=== PATIENT | male | born 1955 | race Caucasian/White ===

== ENCOUNTER 2017-02-06 10:47 | Emergency (ER) | payer MEDICARE, MEDICAID ==
[2017-02-06 11:05] VITALS: BP 139/83
--- NOTE | 2017-02-10 03:22 | ER ---
Date of Service: 02/06/2017 SUBJECTIVE: Buster presents to the emergency room with difficulty walking and bearing weight on his right foot. Staff states that he had a fall yesterday at his snf. He is a resident at [facility]. The patient does have a significant cognitive impairment. Staff states that he first was walking without difficulty, but later in the day began favoring his right foot. The patient is brought in secondary to this and did not suffer any other injury during the fall according to staff. Again, the patient does suffer from significant cognitive impairment and so subsequently the patient was unable to verbalize much in the way of chief complaint. PAST MEDICAL HISTORY: 1. Cognitive impairment. 2. Type 2 diabetes mellitus. 3. Seizure disorder. 4. Dyslipidemia. 5. Hypertension. MEDICATIONS: 1. Metformin. 2. Carbamazepine. 3. Simvastatin. 4. Multivitamin. 5. Hydrochlorothiazide. 6. Docusate. 7. Depakote. 8. Aspirin. ALLERGIES: Phenobarbital and pseudoephedrine. REVIEW OF SYSTEMS: Unobtainable. PHYSICAL EXAMINATION: General: This is a 61-year-old male patient, who is in no acute distress. Vital Signs: Blood pressure is 139/83, pulse rate 75, temperature is 36.3, respiratory rate 16, O2 saturations 97%. Skin: Warm, pink, and dry. Musculoskeletal: The patient does have some minimal swelling to his right ankle. No crepitus or deformity noted. No other traumatic findings noted. His drawer test is negative. Unable to elicit any discomfort with flexion and extension of the ankle joint or with varus or valgus stress. RADIOGRAPHIC DATA: Right foot and ankle series were obtained. There is no evidence of any acute fracture or dislocation. ASSESSMENT: Right ankle sprain. PLAN: The patient will be discharged. Navneet wrap was applied. I would like him to follow up in the clinic in the next 5 to 7 days if he is continuing to have difficulties with weightbearing. All questions were answered. MWK: 02/09/2017 23:53:21 MODL: 02/10/2017 03:15:03 /[id number]
== END 2017-02-06 13:02 ==
LOC: VM.ED 10:47
DX: S93.401A Sprain of unspecified ligament of right ankle, initial encounter (principal); E11.9 Type 2 diabetes mellitus without complications; I10 Essential (primary) hypertension; G31.84 Mild cognitive impairment of uncertain or unknown etiology; E78.5 Hyperlipidemia, unspecified; W19.XXXA Unspecified fall, initial encounter; Y92.009 Unspecified place in unspecified non-institutional (private) residence as the place of occurrence of the external cause
CPT/HCPCS: 73610-RT; 73630-RT; 99282-GF; 99283

== ENCOUNTER 2017-02-12 19:13 | Emergency (ER) | payer MEDICARE, MEDICAID ==
[2017-02-12 19:39] VITALS: BP 140/82
--- NOTE | 2017-02-12 19:54 | EDM.PDOC ---
ED HPI GENERAL MEDICAL PROBLEM - General Chief Complaint: Lower Extremity Injury/Pain Stated Complaint: old sprain, right leg/foot swelling Time Seen by Provider: 02/12/17 19:39 Source of Information: Reports: Patient History Limitations: Reports: No Limitations - History of Present Illness INITIAL COMMENTS - FREE TEXT/NARRATIVE: Patient brought in by staffing from the [facility] with complaints of increased swelling of the right lower leg over the last day. He was seen by Buster Chadwick on Monday February 06, 2017 and diagnosed with a sprained ankle. He had been improving before today. The leg is swollen, red, some pain, warm to touch. He is unable to verbalize any complaints. Onset: Today Location: Reports: Lower Extremity, Right - Related Data Allergies Allergy/AdvReac Type Severity Reaction Status Date / Time phenobarbital Allergy Cannot Verified 02/12/17 19:39 Remember pseudoephedrine Allergy Cannot Verified 02/12/17 19:39 Remember Home Meds: Home Meds Aspirin [Low Dose Aspirin EC] 81 mg PO DAILY 02/18/14 [History] Divalproex Sodium [Divalproex Sodium ER] 2 tab PO TID 02/18/14 [History] Docusate Sodium [Dok] 2 cap PO BEDTIME 02/18/14 [History] Hydrochlorothiazide 25 mg PO DAILY 02/18/14 [History] Multivits-Min/FA/Lycopene/Lut [[facility]] 1 each PO DAILY 02/18/14 [History] Simvastatin [Zocor] 40 mg PO BEDTIME 02/18/14 [History] carBAMazepine [Carbamazepine] 2 tab PO BEDTIME 02/18/14 [History] carBAMazepine [Carbamazepine] 200 mg PO DAILY 02/18/14 [History] metFORMIN [metFORMIN XR] 1,000 mg PO BIDM 02/18/14 [History] Past Medical History Other HEENT History: encephalitis Cardiovascular History: Reports: High Cholesterol, Hypertension Other Neuro History: encephalitis Other Psychiatric History: severe mental retardation Social & Family History - Tobacco Use Smoking Status *Q: Never Smoker Second Hand Smoke Exposure: No - Alcohol Use Days Per Week of Alcohol Use: 0 - Recreational Drug Use Recreational Drug Use: No - Living Situation & Occupation Living situation: Reports: Other Review of Systems - Review of Systems Review Of Systems: Unable To Obtain ED EXAM, GENERAL - Physical Exam Exam: See Below Exam Limited By: Other (history obtained by staff) General Appearance: Alert, WD/WN, No Apparent Distress Respiratory/Chest: No Respiratory Distress, Lungs Clear, Normal Breath Sounds, No Accessory Muscle Use, Chest Non-Tender Cardiovascular: Normal Peripheral Pulses, Regular Rate, Rhythm, No Edema, No Murmur GI/Abdominal: Normal Bowel Sounds, Soft, Non-Tender Extremities: Pedal Edema (right greater than left 2-3+ with pitting to right leg ) Neurological: Alert, Oriented, Other (traumatic brain injury) Skin Exam: Warm, Dry, Intact, Ecchymosis (right foot does have scattered ecchymosis around the toes), Erythema, Increased Warmth Lymphatic: No Adenopathy Course - Vital Signs Last Recorded V/S: Last Vital Signs Temp 36.1 C 02/12/17 19:15 Pulse 87 02/12/17 19:15 Resp 16 02/12/17 19:15 BP 140/82 02/12/17 19:15 Pulse Ox 96 02/12/17 19:15 - Orders/Labs/Meds Orders: Active Orders 24 hr Category Date Time Status Ankle 2V Rt [CR] Stat Exams 02/12/17 19:41 Ordered Foot 2V Rt [CR] Stat Exams 02/12/17 19:41 Ordered CBC WITH AUTO DIFF [HEME] Stat Lab 02/12/17 19:45 Ordered COMPREHENSIVE METABOLIC PN,CMP [CHEM] Stat Lab 02/12/17 19:45 Ordered CRP, [REF] Stat Lab 02/12/17 19:45 Ordered D-DIMER QUANTITATIVE [COAG] Stat Lab 02/12/17 19:45 Ordered - Re-Assessments/Exams Free Text/Narrative Re-Assessment/Exam: 02/12/17 21:00 review of x-ray images shows a non displaced distal fibula fracture. Will compress and place in walking boot. 02/12/17 21:00 Departure - Departure Time of Disposition: 21:09 Disposition: Home, Self-Care 01 Condition: Good Clinical Impression: Ankle sprain, Fracture of fibula, distal, right, closed - Discharge Information Instructions: Ankle Sprain, [id number] Forms: ED Department Discharge Additional Instructions: MRI on Wednesday, they will call with a time. I did leave contact information on the order sheet for them to utilize. Follow up with [facility] in 1-2 weeks for a follow up x-ray and further interventions if needed. You can either see if there is an auto radiator specialist coming to [place], or call the orthopedic clinic in [place] for an appointment. Their number is [phone]. You can tell them he has a non displaced distal fibula fracture on the right side. Continue to elevate, ice, use tylenol and ibuprofen. Labwork was otherwise non contributory. Negative D-Dimer which can indicate a blood clot to the leg. Again this was a negative test for that. Compress the ankle with chirag wrap or sleeve as tolerated. Please call us with any questions or concerns. - Problem List & Annotations (1) Fracture of fibula, distal, right, closed SNOMED Code(s): 973613044 Code(s): S82.831A - OTH FRACTURE OF UPPER AND LOWER END OF RIGHT FIBULA, INIT Status: Acute Priority: Low Current Visit: Yes Qualifiers: Encounter type: subsequent encounter Fracture morphology: unspecified fracture morphology Fracture healing: with routine healing Qualified Code(s) : S82.831D - Other fracture of upper and lower end of right fibula, subsequent encounter for closed fracture with routine healing - Problem List Review Problem List Initiated/Reviewed/Updated: Yes - My Orders Last 24 Hours: My Active Orders 02/12/17 19:41 Ankle 2V Rt [CR] Stat Foot 2V Rt [CR] Stat 02/12/17 19:45 CBC WITH AUTO DIFF [HEME] Stat COMPREHENSIVE METABOLIC PN,CMP [CHEM] Stat CRP, [REF] Stat D-DIMER QUANTITATIVE [COAG] Stat - Assessment/Plan Last 24 Hours: My Active Orders 02/12/17 19:41 Ankle 2V Rt [CR] Stat Foot 2V Rt [CR] Stat 02/12/17 19:45 CBC WITH AUTO DIFF [HEME] Stat COMPREHENSIVE METABOLIC PN,CMP [CHEM] Stat CRP, [REF] Stat D-DIMER QUANTITATIVE [COAG] Stat Assessment:: Right non displaced distal fibula fracture Plan: MRI on Wednesday, they will call with a time. I did leave contact information on the order sheet for them to utilize. Follow up with [facility] in 1-2 weeks for a follow up x-ray and further interventions if needed. You can either see if there is an auto radiator specialist coming to [place], or call the orthopedic clinic in [place] for an appointment. Their number is [phone]. You can tell them he has a non displaced distal fibula fracture on the right side. Continue to elevate, ice, use tylenol and ibuprofen. Labwork was otherwise non contributory. Negative D-Dimer which can indicate a blood clot to the leg. Again this was a negative test for that. Compress the ankle with chirag wrap or sleeve as tolerated. Please call us with any questions or concerns.
[2017-02-12 20:30] LABS: CHLORIDE,CL 99 mmol/L (98-107); SODIUM,NA 137 mmol/L (136-145)
== END 2017-02-12 21:23 | disposition home or self-care (01) ==
LOC: VM.ED 19:13
DX: S82.831A Other fracture of upper and lower end of right fibula, initial encounter for closed fracture (principal); E78.00 Pure hypercholesterolemia, unspecified; I10 Essential (primary) hypertension; F79 Unspecified intellectual disabilities; Z79.82 Long term (current) use of aspirin; Z79.899 Other long term (current) drug therapy; Z88.8 Allergy status to other drugs, medicaments and biological substances; W19.XXXA Unspecified fall, initial encounter
CPT/HCPCS: 36415; 73610-RT; 73630-RT; 80053; 85025; 85379; 86140; 99283; 99283-GF

== ENCOUNTER 2019-09-16 11:08 | Emergency (ER) | payer MEDICARE, MEDICAID ==
[2019-09-16 11:33] VITALS: BP 156/73; PULSE 86
--- NOTE | 2019-09-16 11:44 | EDM.PDOC ---
ED HPI GENERAL MEDICAL PROBLEM - General Chief Complaint: Laceration Stated Complaint: FALL Time Seen by Provider: 09/16/19 11:15 Source of Information: Reports: Patient, Other (Caregivers) History Limitations: Reports: No Limitations - History of Present Illness INITIAL COMMENTS - FREE TEXT/NARRATIVE: Per patient and caregiver states he fell last night into the corner of a heat return on the side of the wall with a laceration to the left side of his back states area was cleaned up last night with warm soapy water and covered with a Band-Aid but this morning the RN states she wanted it to be looked at by a provider There are no other complaints at this time patient had no head injury no loss of consciousness has had no change in behavior or activity Patient is a diabetic and takes metformin twice daily Duration: Day(s): Quality: Reports: Other (No pain is noted) - Related Data Allergies Allergy/AdvReac Type Severity Reaction Status Date / Time phenobarbital Allergy Cannot Verified 09/16/19 11:37 Remember pseudoephedrine Allergy Cannot Verified 09/16/19 11:37 Remember Home Meds: Home Meds Aspirin [Low Dose Aspirin EC] 81 mg PO DAILY 02/18/14 [History] Divalproex Sodium [Divalproex Sodium ER] 2 tab PO TID 02/18/14 [History] Docusate Sodium [Dok] 2 cap PO BEDTIME 02/18/14 [History] Multivits-Min/FA/Lycopene/Lut [[facility]] 1 each PO DAILY 02/18/14 [History] Simvastatin [Zocor] 40 mg PO BEDTIME 02/18/14 [History] carBAMazepine [Carbamazepine] 2 tab PO BEDTIME 02/18/14 [History] carBAMazepine [Carbamazepine] 200 mg PO DAILY 02/18/14 [History] hydroCHLOROthiazide [Hydrochlorothiazide] 25 mg PO DAILY 02/18/14 [History] metFORMIN [metFORMIN XR] 1,000 mg PO BIDM 02/18/14 [History] Past Medical History Other HEENT History: encephalitis Cardiovascular History: Reports: High Cholesterol, Hypertension Other Neuro History: encephalitis Other Psychiatric History: severe mental retardation Endocrine/Metabolic History: Reports: Diabetes, Type II Social & Family History - Living Situation & Occupation Living situation: Reports: Other ED ROS GENERAL - Review of Systems Review Of Systems: See Below Constitutional: Reports: No Symptoms HEENT: Reports: No Symptoms Respiratory: Reports: No Symptoms Cardiovascular: Reports: No Symptoms Endocrine: Reports: No Symptoms GI/Abdominal: Reports: No Symptoms : Reports: No Symptoms Musculoskeletal: Reports: No Symptoms Skin: Reports: Other (Just the laceration/puncture wound to the back) Neurological: Reports: No Symptoms, Other (There is been no change in behavior with the patient per caregivers) Psychiatric: Reports: No Symptoms Hematologic/Lymphatic: Reports: No Symptoms Immunologic: Reports: No Symptoms ED EXAM, SKIN/RASH Exam: See Below Exam Limited By: No Limitations General Appearance: Alert, WD/WN, No Apparent Distress, Other (Patient is alert and oriented follows commands answer some questions states he is not hurting cranial nerves II through XII are grossly intact) Eye Exam: Bilateral Eye: EOMI, PERRL Throat/Mouth: Normal Inspection, Normal Lips, Normal Gums, Normal Voice, No Airway Compromise Head: Atraumatic, Normocephalic Neck: Full Range of Motion Respiratory/Chest: No Respiratory Distress, No Accessory Muscle Use GI/Abdominal: Normal Bowel Sounds, Soft, Non-Tender Back Exam: Normal Inspection, Full Range of Motion Extremities: Normal Inspection, Normal Range of Motion, Non-Tender Neurological: Alert, Oriented, CN II-XII Intact, Normal Cognition, Normal Gait, No Motor/Sensory Deficits Psychiatric: Normal Affect, Normal Mood Skin: Warm, Dry, Normal Color, No Rash, Other (Exam to the left lateral paraspinal muscle area there is approximately a 1 cm laceration/puncture wound that is approximately 4 mm deep and has some mild clear sanguinous drainage per the caregiver states he did have a bath just before he got here there is no surrounding erythema calor or signs or symptoms of secondary infection the patient has no tenderness to palpation around the area of the spine). No: Intact Course - Vital Signs Text/Narrative:: Approximately 1 cm of layered iodoform gauze was placed in the puncture wound and covered with a Band-Aid Caregivers were given signs and symptoms of infection and need for follow-up with a verbal understanding they also states they will perform the repacking for the next 48 hours and have the RN follow-up Wednesday with the patient they understand signs symptoms and need to return to the emergency room Last Recorded V/S: Last Vital Signs Temp 36.1 C 09/16/19 11:12 Pulse 86 09/16/19 11:12 Resp 14 09/16/19 11:12 BP 156/73 H 09/16/19 11:12 Pulse Ox 96 09/16/19 11:12 Departure - Departure Time of Disposition: 11:40 Disposition: Home, Self-Care 01 Condition: Good Clinical Impression: Puncture wound - Discharge Information *PRESCRIPTION DRUG MONITORING PROGRAM REVIEWED*: No *COPY OF PRESCRIPTION DRUG MONITORING REPORT IN PATIENT VEENA: No Instructions: Laceration Care, Adult, [id number] Referrals: Wilian Lawler MD [Primary Care Provider] - Forms: ED Department Discharge Additional Instructions: Replace the packing gauze tomorrow at 11:00 if the area covered for the next 24 to 48 hours have the nurse follow-up with him Wednesday as directed Keep the area dry and clean after washed with warm soapy water apply small amount of Neosporin to the area daily until seen by the nurse Return to the emergency room if anything changes or gets worse Caregivers given signs and symptoms of infection and need for follow-up with a verbal understanding Sepsis Event Note - Evaluation Sepsis Screening Result: No Definite Risk - Focused Exam Vital Signs: Vital Signs Temp Pulse Resp BP Pulse Ox 09/16/19 11:12 36.1 C 86 14 156/73 H 96 Date Exam was Performed: 09/16/19 Time Exam was Performed: 11:38 - Problem List & Annotations (1) Puncture wound SNOMED Code(s): 222707569 Code(s): T14.8XXA - OTHER INJURY OF UNSPECIFIED BODY REGION, INITIAL ENCOUNTER Status: Acute Current Visit: Yes
== END 2019-09-16 11:44 | disposition home or self-care (01) ==
LOC: VM.ED 11:08
DX: S21.232A Puncture wound without foreign body of left back wall of thorax without penetration into thoracic cavity, initial encounter (principal); E78.00 Pure hypercholesterolemia, unspecified; I10 Essential (primary) hypertension; E11.9 Type 2 diabetes mellitus without complications; Z88.8 Allergy status to other drugs, medicaments and biological substances; Z79.82 Long term (current) use of aspirin; Z79.899 Other long term (current) drug therapy; Z79.84 Long term (current) use of oral hypoglycemic drugs; W19.XXXA Unspecified fall, initial encounter
CPT/HCPCS: 99282; 99283-GF

== ENCOUNTER 2020-07-12 23:13 | Emergency (ER) | payer MEDICARE, MEDICAID ==
--- NOTE | 2020-07-13 00:09 | EDM.PDOC ---
ED HPI GENERAL MEDICAL PROBLEM - General Chief Complaint: General Stated Complaint: Possible Covid / Dehydration Time Seen by Provider: 07/12/20 23:42 Source of Information: Reports: RN History Limitations: Reports: Other - History of Present Illness INITIAL COMMENTS - FREE TEXT/NARRATIVE: Pt. was brought to ER for evaluation for possible covid 19. Pt. is a resident at a [facility]. Staff states that his roommate is currently positive for covid 19. Staff states that patient is less active, and was noted to be running a fever. He was not given any tylenol or ibuprofen for the fever. Staff states that he appears more tired than normal, but is not experiencing any respiratory distress. It is unable to accurately provide a ROS. Pt. has not been experiencing any nausea, vomiting, decreased LOC, or other worrisome signs/symptoms. Onset: Today Onset Date: 07/13/20 Location: Reports: Generalized Associated Symptoms: Reports: Fever/Chills - Related Data Allergies Allergy/AdvReac Type Severity Reaction Status Date / Time phenobarbital Allergy Cannot Verified 09/16/19 11:37 Remember pseudoephedrine Allergy Cannot Verified 09/16/19 11:37 Remember Home Meds: Home Meds Aspirin [Low Dose Aspirin EC] 81 mg PO DAILY 02/18/14 [History] Divalproex Sodium [Divalproex Sodium ER] 2 tab PO TID 02/18/14 [History] Docusate Sodium [Dok] 2 cap PO BEDTIME 02/18/14 [History] Multivits-Min/FA/Lycopene/Lut [[facility]] 1 each PO DAILY 02/18/14 [History] Simvastatin [Zocor] 40 mg PO BEDTIME 02/18/14 [History] carBAMazepine [Carbamazepine] 2 tab PO BEDTIME 02/18/14 [History] carBAMazepine [Carbamazepine] 200 mg PO DAILY 02/18/14 [History] hydroCHLOROthiazide [Hydrochlorothiazide] 25 mg PO DAILY 02/18/14 [History] metFORMIN [metFORMIN XR] 1,000 mg PO BIDM 02/18/14 [History] Past Medical History Other HEENT History: encephalitis Cardiovascular History: Reports: High Cholesterol, Hypertension Other Neuro History: encephalitis Other Psychiatric History: severe mental retardation Endocrine/Metabolic History: Reports: Diabetes, Type II Social & Family History - Living Situation & Occupation Living situation: Reports: Other ED ROS GENERAL - Review of Systems Review Of Systems: Unable To Obtain Reason Not Obtained: developmental delay ED EXAM, GENERAL - Physical Exam Exam: See Below Exam Limited By: No Limitations General Appearance: Alert, No Apparent Distress Throat/Mouth: Normal Inspection, Normal Lips, Normal Teeth, Normal Oropharynx, Normal Voice, No Airway Compromise, Other (oral mucosa is moist.) Head: Atraumatic, Normocephalic Neck: Normal Inspection, Supple, Full Range of Motion Respiratory/Chest: No Respiratory Distress, Lungs Clear, Normal Breath Sounds, No Accessory Muscle Use Cardiovascular: Normal Peripheral Pulses, Regular Rate, Rhythm, No Edema, No Murmur GI/Abdominal: Soft, Non-Tender, No Distention, No Mass (Male) Exam: Deferred Rectal (Males) Exam: Deferred Extremities: Normal Inspection, Normal Range of Motion, Non-Tender, No Pedal Edema, Normal Capillary Refill Neurological: Alert, Oriented, CN II-XII Intact, Normal Reflexes, No Motor/Sensory Deficits Psychiatric: Normal Affect, Normal Mood Skin Exam: Warm, Dry, Intact, Normal Color Course - Orders/Labs/Meds Labs: Laboratory Tests 07/12/20 Range/Units 23:23 SARS CoV-2 RNA Rapid DIONTE Positive H (NEGATIVE) Departure - Departure Time of Disposition: 20:04 Disposition: DC/Tfer to [id number] Clinical Impression: COVID-19 - Discharge Information Instructions: COVID-19 Frequently Asked Questions, COVID-19 Forms: ED Department Discharge Additional Instructions: Quarantine patient as best as you can. Tylenol 100mg every 6 hours for fever. Ibuprofen 400mg every 4 hours for fever. I would give these on a schedule for the next several days. Encourage hydration. Return to ER if he has increased work of breathing, confusion, or other worrisome signs/symptoms. - Problem List Review Problem List Initiated/Reviewed/Updated: Yes - Assessment/Plan Plan: Quarantine patient as best as you can. Tylenol 100mg every 6 hours for fever. Ibuprofen 400mg every 4 hours for fever. I would give these on a schedule for the next several days. Encourage hydration. Return to ER if he has increased work of breathing, confusion, or other worrisome signs/symptoms.
[2020-07-13 00:52] VITALS: BP 172/86; PULSE 98
== END 2020-07-13 00:03 ==
LOC: SUPCPDRO 23:13 → VM.ED 23:13
DX: U07.1 COVID-19 (principal); I10 Essential (primary) hypertension; E78.00 Pure hypercholesterolemia, unspecified; E11.9 Type 2 diabetes mellitus without complications; Z79.82 Long term (current) use of aspirin; Z79.899 Other long term (current) drug therapy; Z79.84 Long term (current) use of oral hypoglycemic drugs; Z88.8 Allergy status to other drugs, medicaments and biological substances
CPT/HCPCS: 99284; U0002

== ENCOUNTER 2021-02-03 10:09 | Emergency (ER) | payer MEDICARE, MEDICAID ==
[2021-02-03] MEDS ORDERED: Sodium Chloride 0.9% 1,000 ML IV SCH (10:30)
--- NOTE | 2021-02-03 10:37 | EDM.PDOC ---
ED HPI GENERAL MEDICAL PROBLEM - General Stated Complaint: STROKE CODE Time Seen by Provider: 02/03/21 10:16 Source of Information: Reports: EMS, Alf Records, RN - History of Present Illness INITIAL COMMENTS - FREE TEXT/NARRATIVE: Buster is a 65 y/o male who lives at the [facility]. He has a history of a severe seizure disorder. Today at 0800 staff noticed that he was very weak and required 2 assists to help him get out of the chair. He usually is able to ambulate independently. He seemed to eat okay this AM for breakfast. He was also very unstable when needing the 2 person assist. He did get up to void 4-5 times last night which is unusual for him. He has followed commands of staff, but he is otherwise not good historian at his baseline. - Related Data Allergies Allergy/AdvReac Type Severity Reaction Status Date / Time phenobarbital Allergy Cannot Verified 02/03/21 11:29 Remember pseudoephedrine Allergy Cannot Verified 02/03/21 11:29 Remember Home Meds: Home Meds Aspirin [Low Dose Aspirin EC] 81 mg PO DAILY 02/18/14 [History] Simvastatin [Zocor] 40 mg PO BEDTIME 02/18/14 [History] carBAMazepine [Carbamazepine] 2 tab PO BEDTIME 02/18/14 [History] carBAMazepine [Carbamazepine] 200 mg PO DAILY 02/18/14 [History] hydroCHLOROthiazide [Hydrochlorothiazide] 25 mg PO DAILY 02/18/14 [History] metFORMIN [metFORMIN XR] 1,000 mg PO BIDM 02/18/14 [History] Docusate Sodium [Colace] 200 mg PO DAILY@18 02/03/21 [History] Multivit-Min/Iron/Folic Acid/K [Centravites Adults Tablet] 1 tab PO DAILY 02/03/21 [History] Valproic Acid 1,000 mg PO TID 02/03/21 [History] lisinopriL [Lisinopril] 20 mg PO BID 02/03/21 [History] Past Medical History Other HEENT History: encephalitis Cardiovascular History: Reports: High Cholesterol, Hypertension Other Neuro History: encephalitis Other Psychiatric History: severe mental retardation Endocrine/Metabolic History: Reports: Diabetes, Type II - Infectious Disease History Infectious Disease History: Reports: Novel Coronavirus Social & Family History - Living Situation & Occupation Living situation: Reports: Other Review of Systems - Review of Systems Review Of Systems: Unable To Obtain Reason Not Obtained: Patient has hx of Severe Mental Retardation/Encephalitis ED EXAM, GENERAL - Physical Exam Exam: See Below Exam Limited By: Other (Cognitive Status) General Appearance: Alert, WD/WN (Elderly male. He is alert and wearing a protection helmet.) Eye Exam: Bilateral Eye: PERRL Ears: Normal External Exam, Normal Canal, Other (TMs occluded with soft brown cerumen) Nose: Normal Inspection, Normal Mucosa Throat/Mouth: Normal Inspection, Normal Lips Head: Atraumatic, Normocephalic Neck: Normal Inspection, Supple, Non-Tender Respiratory/Chest: No Respiratory Distress, Lungs Clear, Chest Non-Tender Cardiovascular: Normal Peripheral Pulses, Regular Rate, Rhythm GI/Abdominal: Normal Bowel Sounds, Soft, Other (Note a well healed surgical scar.) Back Exam: Normal Inspection, Full Range of Motion Extremities: Normal Capillary Refill, Pedal Edema (Trace non-pitting john lower legs), Other (TEDs on bilaterally) Neurological: Alert, CN II-XII Intact, Other (Seems to be at baseline, NIH Score unable due to cognitive impairment) Psychiatric: Normal Affect Skin Exam: Warm, Dry, Intact #1 Interpretation EKG Date: 02/03/21 Time: 10:22 Rhythm: NSR Rate (Beats/Min): 88 Spencer: Normal P-Wave: Present QRS: Normal ST-T: Normal QT: Normal Comparison: NA - No Prior EKG EKG Interpretation Comments: Occasional PACs, Sinus Rhythm Course - Vital Signs Text/Narrative:: 1016 The patient was seen by the PLANT OPERATOR/SHIFT SUPERVISOR. He went immediately to CT from EMS cot. Labs, EKG, & imaging was ordered. 1110 Labs reviewed. Note Lactic Acid=3.6, asked for repeat test from lab. Zchzoq=161, Wpruzlh=258, Gap=9.0, high anion gap with normal gap acidosis. Ceftriaxone 1gm IVP given to elevated lactic acid, no obvious source of infection noted and patient afebrile. Blood Cx x [address] results reviewed. Note late acute to early chronic frontoparietal subdural hematoma measuring 6 mm with a mild rightward shift of 3mm. Andrea Sloan contacted and case presented for transfer. Awaiting return call from Neuro Surgeon location director after CT review. Note BP 165/83 and 181/85, decreased but still elevated. Will give Labetalol 10mg IVP to reach BP goal >140/90 due to hemorrhage. 1230 Neuro Surgeon, Dr Tilley called back and does not advise any acute surgical intervention after reviewing the CT. PLANT OPERATOR/SHIFT SUPERVISOR requests hospitalist to consult with further. 1245 Luther returned call and case now presented to Dr Jones who advises transfer for further diagnostic imaging, but awaiting call back from Dr Torre. 1255 Dr Torre, Neurology, returns call and case presented. He advises transfer to the ER for further evaluation. Dr Jones to be accepting in the ER. patient remained stabled until leaving with EMS. - Orders/Labs/Meds Orders: Active Orders 24 hr Category Date Time Status EKG Documentation Completion [RC] STAT Care 02/03/21 10:18 Ordered CULTURE BLOOD [BC] Stat Lab 02/03/21 11:13 Ordered CULTURE BLOOD [BC] Stat Lab 02/03/21 11:13 Ordered Sodium Chloride 0.9% [Normal Saline] 1,000 ml Med 02/03/21 10:30 Ordered IV ASDIRECTED Blood Culture x2 Reflex Set [OM.PC] Stat Oth 02/03/21 11:13 Ordered Medication Orders Sodium Chloride (Normal Saline) 1,000 mls @ 50 mls/hr IV ASDIRECTED TEA Labs: Laboratory Tests 02/03/21 02/03/21 02/03/21 Range/Units 10:21 10:26 10:26 WBC 8.1 (4.0-10.0) x10^3/uL RBC 4.89 (4.5-6.0) x10^6/uL Hgb 14.7 (14.0-18.0) g/dL Hct 42.8 (40.0-52.0) % MCV 87.5 D (78.0-93.0) fL MCH 30.1 (26.0-32.0) pg MCHC 34.3 (32.0-36.0) g/dL RDW Coeff of Mimi 15.0 (10.0-15.0) % Plt Count 137 (130-400) x10^3/uL Neut % (Auto) 59.5 (50.0-80.0) % Lymph % (Auto) 27.3 (25.0-50.0) % [place] % (Auto) 11.3 H (2.0-11.0) % Eos % (Auto) 1.4 (0.0-4.0) % Baso % (Auto) 0.5 (0.2-1.2) % PT 10.9 (9.9-12.5) SEC INR 1.0 L (2.0-3.5) APTT 27.1 (25.6-32.8) SEC Sodium (136-145) mmol/L Potassium (3.5-5.1) mmol/L Chloride (98-107) mmol/L Carbon Dioxide (21-32) mmol/L Anion Gap (5-15) mmol/L BUN (7-18) mg/dL Creatinine (0.70-1.30) mg/dL Est Cr Clr Drug Dosing Estimated GFR (MDRD) Glucose (70-99) mg/dL POC Glucose 131 H (70-99) mg/dL Lactic Acid (0.4-2.0) mmol/L Calcium (8.5-10.1) mg/dL Corrected Calcium (8.5-10.1) mg/dL Magnesium (1.8-2.4) mg/dL Total Bilirubin (0.2-1.0) mg/dL AST (15-37) U/L ALT (16-63) U/L Alkaline Phosphatase (46-116) U/L Troponin I High Sens (<=76) ng/L NT-Pro-B Natriuret Pep (<=125) pg/mL Total Protein (6.4-8.2) g/dL Albumin (3.4-5.0) g/dL Globulin Albumin/Globulin Ratio Urine Color (YELLOW) Urine Appearance (CLEAR) Urine pH (5.0-8.0) Ur Specific [place] Urine Protein (NEGATIVE) mg/dL Urine Glucose (UA) (NEGATIVE) mg/dL Urine Ketones (NEGATIVE) mg/dL Urine Occult Blood (NEGATIVE) Urine Nitrite (NEGATIVE) Urine Bilirubin (NEGATIVE) Urine Urobilinogen (0.2) EU/dL Ur Leukocyte Esterase (NEGATIVE) Urine RBC (NOT SEEN) /HPF Urine WBC (NOT SEEN) /HPF Urine Bacteria (NOT SEEN) /HPF Urine Mucus (NOT SEEN) /LPF 02/03/21 02/03/21 02/03/21 Range/Units 10:26 10:26 10:26 WBC (4.0-10.0) x10^3/uL RBC (4.5-6.0) x10^6/uL Hgb (14.0-18.0) g/dL Hct (40.0-52.0) % MCV (78.0-93.0) fL MCH (26.0-32.0) pg MCHC (32.0-36.0) g/dL RDW Coeff of Mimi (10.0-15.0) % Plt Count (130-400) x10^3/uL Neut % (Auto) (50.0-80.0) % Lymph % (Auto) (25.0-50.0) % [place] % (Auto) (2.0-11.0) % Eos % (Auto) (0.0-4.0) % Baso % (Auto) (0.2-1.2) % PT (9.9-12.5) SEC INR (2.0-3.5) APTT (25.6-32.8) SEC Sodium 130 L (136-145) mmol/L Potassium 4.6 (3.5-5.1) mmol/L Chloride 93 L (98-107) mmol/L Carbon Dioxide 28 (21-32) mmol/L Anion Gap 13.6 (5-15) mmol/L BUN 21 H (7-18) mg/dL Creatinine 0.9 (0.70-1.30) mg/dL Est Cr Clr Drug Dosing TNP Estimated GFR (MDRD) > 60 Glucose 125 H (70-99) mg/dL POC Glucose (70-99) mg/dL Lactic Acid 3.6 H* (0.4-2.0) mmol/L Calcium 8.9 (8.5-10.1) mg/dL Corrected Calcium 9.3 (8.5-10.1) mg/dL Magnesium 1.3 L (1.8-2.4) mg/dL Total Bilirubin 0.3 (0.2-1.0) mg/dL AST 12 L (15-37) U/L ALT 14 L (16-63) U/L Alkaline Phosphatase 47 (46-116) U/L Troponin I High Sens 10 (<=76) ng/L NT-Pro-B Natriuret Pep 706 H (<=125) pg/mL Total Protein 7.1 (6.4-8.2) g/dL Albumin 3.5 (3.4-5.0) g/dL Globulin 3.6 Albumin/Globulin Ratio 0.97 Urine Color (YELLOW) Urine Appearance (CLEAR) Urine pH (5.0-8.0) Ur Specific [place] Urine Protein (NEGATIVE) mg/dL Urine Glucose (UA) (NEGATIVE) mg/dL Urine Ketones (NEGATIVE) mg/dL Urine Occult Blood (NEGATIVE) Urine Nitrite (NEGATIVE) Urine Bilirubin (NEGATIVE) Urine Urobilinogen (0.2) EU/dL Ur Leukocyte Esterase (NEGATIVE) Urine RBC (NOT SEEN) /HPF Urine WBC (NOT SEEN) /HPF Urine Bacteria (NOT SEEN) /HPF Urine Mucus (NOT SEEN) /LPF 02/03/21 Range/Units 10:45 WBC (4.0-10.0) x10^3/uL RBC (4.5-6.0) x10^6/uL Hgb (14.0-18.0) g/dL Hct (40.0-52.0) % MCV (78.0-93.0) fL MCH (26.0-32.0) pg MCHC (32.0-36.0) g/dL RDW Coeff of Mimi (10.0-15.0) % Plt Count (130-400) x10^3/uL Neut % (Auto) (50.0-80.0) % Lymph % (Auto) (25.0-50.0) % [place] % (Auto) (2.0-11.0) % Eos % (Auto) (0.0-4.0) % Baso % (Auto) (0.2-1.2) % PT (9.9-12.5) SEC INR (2.0-3.5) APTT (25.6-32.8) SEC Sodium (136-145) mmol/L Potassium (3.5-5.1) mmol/L Chloride (98-107) mmol/L Carbon Dioxide (21-32) mmol/L Anion Gap (5-15) mmol/L BUN (7-18) mg/dL Creatinine (0.70-1.30) mg/dL Est Cr Clr Drug Dosing Estimated GFR (MDRD) Glucose (70-99) mg/dL POC Glucose (70-99) mg/dL Lactic Acid (0.4-2.0) mmol/L Calcium (8.5-10.1) mg/dL Corrected Calcium (8.5-10.1) mg/dL Magnesium (1.8-2.4) mg/dL Total Bilirubin (0.2-1.0) mg/dL AST (15-37) U/L ALT (16-63) U/L Alkaline Phosphatase (46-116) U/L Troponin I High Sens (<=76) ng/L NT-Pro-B Natriuret Pep (<=125) pg/mL Total Protein (6.4-8.2) g/dL Albumin (3.4-5.0) g/dL Globulin Albumin/Globulin Ratio Urine Color Yellow (YELLOW) Urine Appearance Clear (CLEAR) Urine pH 7.5 (5.0-8.0) Ur Specific [place] 1.025 Urine Protein Negative (NEGATIVE) mg/dL Urine Glucose (UA) Negative (NEGATIVE) mg/dL Urine Ketones 15 H (NEGATIVE) mg/dL Urine Occult Blood Trace-intact H (NEGATIVE) Urine Nitrite Negative (NEGATIVE) Urine Bilirubin Negative (NEGATIVE) Urine Urobilinogen 1.0 (0.2) EU/dL Ur Leukocyte Esterase Negative (NEGATIVE) Urine RBC 0-5 (NOT SEEN) /HPF Urine WBC 0-5 (NOT SEEN) /HPF Urine Bacteria Rare (NOT SEEN) /HPF Urine Mucus Not seen (NOT SEEN) /LPF Meds: Medications Generic Name Dose Route Start Last Admin Trade Name Freq PRN Reason Stop Dose Admin Sodium Chloride 1,000 mls @ 50 mls/hr 02/03/21 10:30 Normal Saline IV ASDIRECTED TEA Discontinued Medications Generic Name Dose Route Start Last Admin Trade Name Freq PRN Reason Stop Dose Admin Ceftriaxone Sodium 1 gm 02/03/21 11:12 Ceftriaxone 1 Gm Vial IVPUSH 02/03/21 11:13 STAT ONE Labetalol HCl 10 mg 02/03/21 11:33 Labetalol 20 Mg/4 Ml Syringe IVPUSH 02/03/21 11:34 NOW ONE Protocol Departure - Departure Time of Disposition: 12:59 Disposition: DC/Tfer to Acute Hospital 02 Preliminary Cause of *Q: Cardiac Arrest Condition: Good Clinical Impression: Midline shift of brain due to hematoma, Increased weakness when ambulating, Hx: encephalitis, Seizure disorder, Lactic acid blood increased, Subdural hematoma, Change in behavior - Discharge Information Referrals: Trudy Lagunas MD [Primary Care Provider] - Forms: Interfacility Transfer EMTALA Additional Instructions: -To [facility] ER to Dr Jones via [facility] - My Orders Last 24 Hours: My Active Orders 02/03/21 10:18 EKG Documentation Completion [RC] STAT 02/03/21 10:30 Sodium Chloride 0.9% [Normal Saline] 1,000 ml IV ASDIRECTED 02/03/21 11:13 CULTURE BLOOD [BC] Stat CULTURE BLOOD [BC] Stat Blood Culture x2 Reflex Set [OM.PC] Stat - Assessment/Plan Last 24 Hours: My Active Orders 02/03/21 10:18 EKG Documentation Completion [RC] STAT 02/03/21 10:30 Sodium Chloride 0.9% [Normal Saline] 1,000 ml IV ASDIRECTED 02/03/21 11:13 CULTURE BLOOD [BC] Stat CULTURE BLOOD [BC] Stat Blood Culture x2 Reflex Set [OM.PC] Stat Assessment:: 1)Change in Behavior 2)Subdural Hematoma with Midline Shift, Subacute vs Chronic 3)Increased Overall Weakness 4)Hx Encephalitis 5)Severely Retarded 6)Hyponatremia 7)Elevated Lactic Acid Plan: -Transfer to [facility] via EMS for further care at tertiary hague
[2021-02-03 10:50] LABS: PTT,PARTIAL THROMBOPLSTIN TIME 27.1 SEC (25.6-32.8)
--- NOTE | 2021-02-03 10:51 | CT ---
[id number] CT/CT Head Stroke Protocol EXAM: NONCONTRAST HEAD CT INDICATION: STROKE CODE, INCREASED UNSTEADINESS COMPARISON: None. DISCUSSION: Overlying the left frontoparietal convexity there is a 6 mm subdural collection that is slightly more dense than CSF compatible with a late subacute to chronic subdural hematoma. Along the parafalcine aspect of the right frontal lobe there is a 10 mm CSF density subdural collection along the falx that could represent a chronic subdural hematoma or hygroma. Mild to moderate generalized atrophy. Mild rightward midline shift of about 4 mm. No acute hemorrhage or territorial infarct is identified. Mild bilateral maxillary sinus mucosal thickening. IMPRESSION: 1. Late subacute to early chronic left frontoparietal convexity subdural hematoma measuring about 6 mm in thickness and contributing to mild rightward midline shift of about 3 mm. 2. Right parafalcine CSF density subdural collection, chronic subdural hematoma versus subdural hygroma. 3. No acute findings. Moses Booth MD 02/03/21 [id number] Thank you for allowing us to participate in the care of your patient.
[2021-02-03 11:02] LABS: CHLORIDE,CL 93 mmol/L (98-107); SODIUM,NA 130 mmol/L (136-145)
[2021-02-03 11:04] LABS: ANION GAP 13.6 mmol/L (5-15)
[2021-02-03] MEDS ORDERED: cefTRIAXone 1 GM Vial IVPUSH ONE (11:12)
[2021-02-03] MEDS ORDERED: Labetalol 20 MG/4 ML Syringe IVPUSH ONE (11:33)
== END 2021-02-03 13:44 | disposition short-term general hospital (02) ==
LOC: VM.ED 10:09
DX: I62.00 Nontraumatic subdural hemorrhage, unspecified (principal); R26.2 Difficulty in walking, not elsewhere classified; G40.909 Epilepsy, unspecified, not intractable, without status epilepticus; R74.02 Elevation of levels of lactic acid dehydrogenase [LDH]; E78.00 Pure hypercholesterolemia, unspecified; I10 Essential (primary) hypertension; R53.1 Weakness; E11.9 Type 2 diabetes mellitus without complications; F91.9 Conduct disorder, unspecified; E87.1 Hypo-osmolality and hyponatremia; Z79.84 Long term (current) use of oral hypoglycemic drugs; Z79.899 Other long term (current) drug therapy; Z86.61 Personal history of infections of the central nervous system
CPT/HCPCS: 36415; 70450; 80053; 81001; 82947; 83605; 83735; 83880; 84484; 85025; 85610; 85730; 87040; 93005; 93010; 96374; 96375; 99284; 99285-25

== ENCOUNTER 2021-03-17 09:13 | Observation (INO) | payer MEDICARE, MEDICAID ==
[2021-03-17] MEDS ORDERED: Sodium Chloride 0.9% 10 ML Syringe FLUSH PRN (09:24)
[2021-03-17 10:19] LABS: CHLORIDE,CL 94 mmol/L (98-107); SODIUM,NA 130 mmol/L (136-145)
[2021-03-17 10:20] LABS: ANION GAP 10.8 mmol/L (5-15)
[2021-03-17 10:35] LABS: BARBITURATE SCREEN,URINE NEGATIVE (NEGATIVE); BENZODIAZEPINES SCREEN,URINE NEGATIVE (NEGATIVE); BUPRENORPHINE SCREEN,URINE NEGATIVE (NEGATIVE); METHAMPHETAMINE SCREEN, URINE NEGATIVE (NEGATIVE); THC SCREEN,URINE 50 NG/ML NEGATIVE (NEGATIVE)
--- NOTE | 2021-03-17 11:01 | CR ---
[id number] RAD/RAD Chest PA or AP 1V EXAM: FRONTAL CHEST INDICATION: ELEVATED LACTIC ACID. COMPARISON: None. DISCUSSION: The lungs are hypoinflated with central vascular congestion and basilar atelectasis which could obscure infiltrates or other acute findings. Normal heart size. Possible small right pleural effusion. IMPRESSION: 1. Possible small right pleural effusion. 2. Bibasilar atelectasis. Moses Booth MD 03/17/21 1100 Thank you for allowing us to participate in the care of your patient.
[2021-03-17] MEDS ORDERED: cefTRIAXone 1 GM Vial IVPUSH ONE (11:16)
[2021-03-17] MEDS: Doxycycline 100 MG Cap PO SCH ×2 (11:35→20:17)
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
[2021-03-17] MEDS: Sodium Chloride 0.9% 1,000 ML IV SCH ×2 (13:28→20:15)
[2021-03-17] MEDS: carBAMazepine 200 MG Tab PO SCH (15:57)
[2021-03-17] MEDS: Divalproex Sodium 500 MG Tab.ER PO SCH ×2 (15:57→20:16)
--- NOTE | 2021-03-17 16:38 | PCM.SN.2 ---
- Free Text/Narrative Note: Patient admitted to obs for trending of lactic acid/monitoring for improvement in strength. Report taken from ER provider. Results from testing done in the ER reviewed. Repeat lactic acid came back higher than prior; therefore, patient started on IV fluids. Will recheck at 3 hours. Repeat labs in the am. If procalcitonin, CRP, and WBC still normal, will d/c antibiotics. Repeat lactic acid in the am as well. Metformin will be d/c'd. Anticipate d/c tomorrow; therefore, no indication for any pharmacologic VTE prophylaxis.
[2021-03-17] MEDS ORDERED: Docusate Sodium 100 MG Cap PO SCH (18:00)
[2021-03-17] MEDS ORDERED: metFORMIN 500 MG Tab PO SCH (18:00)
[2021-03-17] MEDS ORDERED: carBAMazepine 200 MG Tab PO SCH (20:00)
[2021-03-17] MEDS ORDERED: Aspirin 81 MG Tab.EC PO SCH (20:00)
[2021-03-17] MEDS ORDERED: Simvastatin 40 MG Tab PO SCH (20:00)
[2021-03-17] MEDS: Lisinopril 20 MG Tab PO SCH (20:15)
[2021-03-18] MEDS: Sodium Chloride 0.9% 1,000 ML IV SCH (02:50)
[2021-03-18 07:13] LABS: CHLORIDE,CL 98 mmol/L (98-107)
[2021-03-18 07:30] LABS: ANION GAP 9.4 mmol/L (5-15); SODIUM,NA 129 mmol/L (136-145)
[2021-03-18] MEDS: carBAMazepine 200 MG Tab PO SCH (07:50)
[2021-03-18] MEDS: Divalproex Sodium 500 MG Tab.ER PO SCH (07:50)
[2021-03-18] MEDS: Lisinopril 20 MG Tab PO SCH (07:50)
[2021-03-18] MEDS: Doxycycline 100 MG Cap PO SCH (07:50)
[2021-03-18] MEDS ORDERED: Multivitamins with Iron/Calcium/Folic Acid/Minerals Tab PO SCH (08:00)
[2021-03-18] MEDS ORDERED: cefTRIAXone 1 GM Vial IVPUSH SCH (08:00)
[2021-03-18] MEDS ORDERED: Hydrochlorothiazide 25 MG Tab PO SCH (08:00)
--- NOTE | 2021-03-18 08:12 | PCM.DCSUM1 ---
Discharge Summary - Hospital Course Brief History: Mr. Mckinnon is a 66 yo male admitted with lactic acidosis after presenting to the ER for evaluation of an episode of leg weakness. - Discharge Data Discharge Date: 03/18/21 Discharge Disposition: DC/Tfer to [facility] Condition: Good - Referral to Home Health Primary Care Physician: Trudy Lagunas MD - Discharge Diagnosis/Problem(s) (1) Lactic acidosis SNOMED Code(s): 54693217 ICD Code: E87.2 - ACIDOSIS Status: Acute Current Visit: Yes (2) Hyponatremia SNOMED Code(s): 23936081 ICD Code: E87.1 - HYPO-OSMOLALITY AND HYPONATREMIA Status: Chronic Current Visit: Yes (3) Anemia SNOMED Code(s): 434570170 ICD Code: D64.9 - ANEMIA, UNSPECIFIED Status: Chronic Current Visit: Yes Qualifiers: Anemia type: unspecified type Qualified Code(s): D64.9 - Anemia, unspecified (4) Hypertension SNOMED Code(s): 48552500 ICD Code: I10 - ESSENTIAL (PRIMARY) HYPERTENSION Status: Chronic Current Visit: Yes Qualifiers: Hypertension type: primary hypertension Qualified Code(s): I10 - Essential (primary) hypertension (5) Hyperlipidemia SNOMED Code(s): 32796349 ICD Code: E78.5 - HYPERLIPIDEMIA, UNSPECIFIED Status: Chronic Current Visit: Yes Qualifiers: Hyperlipidemia type: unspecified Qualified Code(s): E78.5 - Hyperlipidemia, unspecified (6) Diabetes SNOMED Code(s): 86291417 ICD Code: E11.9 - TYPE 2 DIABETES MELLITUS WITHOUT COMPLICATIONS Status: Chronic Current Visit: Yes Qualifiers: Diabetes mellitus type: type 2 Diabetes mellitus shelter insulin use: without director long term care use Diabetes mellitus complication status: without complication Qualified Code(s): E11.9 - Type 2 diabetes mellitus without complications (7) Moderate intellectual disability SNOMED Code(s): 74195425 ICD Code: F71 - MODERATE INTELLECTUAL DISABILITIES Status: Chronic Current Visit: Yes (8) Seizure disorder SNOMED Code(s): 746571974 ICD Code: G40.909 - EPILEPSY, UNSP, NOT INTRACTABLE, WITHOUT STATUS EPILEPTICUS Status: Chronic Current Visit: No - Patient Summary/Data Operative Procedure(s) Performed: none Complications: none Consults: none Labs Pending at D/C: none Recommended Follow-up Testing/Procedures: BMP, CBC in 1 week Planned Operative Procedure(s) after DC: none Hospital Course: While in the ER, Mr. Mckinnon's strength did return to normal and he was able to ambulate. However, his lactic acid was significantly elevated. Therefore, he was admitted for further evaluation/monitoring of this. He was given IV fluids and it has returned to normal today. He was started on antibiotics just in case something was starting in his lungs, especially given the elevated lactic acid. His CRP, procalcitonin, and WBC are still normal today; therefore, it is not felt the elevated lactic acid is from an infectious process. Rather, it is felt this is related to his metformin. Therefore, this will be discontinued upon discharge and we will reassess in follow-up whether it needs to be replaced with anything else. His sodium was low but stable and at baseline; this is not felt to be a contributor to his symptoms since it is at baseline and he does not usually have the weakness. His hemoglobin did decrease but is back to baseline as of today so does not need further monitoring. His hospitalization was otherwise uncomplicated. He is moving around well and felt stable for d/c back to his retirement. He will be discharged today to follow-up in clinic in 1 week. - Patient Instructions Diet: Usual Diet as Tolerated - Discharge Plan *PRESCRIPTION DRUG MONITORING PROGRAM REVIEWED*: No *COPY OF PRESCRIPTION DRUG MONITORING REPORT IN PATIENT VEENA: No Home Medications: Home Meds Aspirin [Low Dose Aspirin EC] 81 mg PO BEDTIME 02/18/14 [History] carBAMazepine [Carbamazepine] 200 mg PO BID@02/18/14 [History] carBAMazepine [Carbamazepine] 400 mg PO BEDTIME 02/18/14 [History] hydroCHLOROthiazide [Hydrochlorothiazide] 25 mg PO DAILY 02/18/14 [History] Docusate Sodium [Colace] 200 mg PO DAILY@18 02/03/21 [History] Multivit-Min/Iron/Folic Acid/K [Centravites Adults Tablet] 1 tab PO DAILY 02/03/21 [History] lisinopriL [Lisinopril] 20 mg PO BID 02/03/21 [History] Divalproex Sodium [Depakote] 1,000 mg PO TID@03/17/21 [History] Simvastatin [Zocor] 40 mg PO BEDTIME 03/17/21 [History] Forms: ED Department Discharge Referrals: Trudy Lagunas MD [Primary Care Provider] - 03/26/21 1:30 pm (You have a follow up appt. [facility] Dr. Francisco Lagunas on March 26, 2021 at 1:30----[facility]. Please wear a mask to your appt.) - Discharge Summary/Plan Comment DC Time >30 min.: No - General Info Date of Service: 03/18/21 Subjective Update: History from patient is limited by his underlying moderate intellectual disability. He is able to answer simple yes/no questions. He denies any pain. He is excited about going home today. Was walking without issue yesterday; nursing staff have not walked with him yet today. - Review of Systems General: Reports: No Symptoms HEENT: Reports: No Symptoms Pulmonary: Reports: No Symptoms Cardiovascular: Reports: No Symptoms Gastrointestinal: Reports: No Symptoms Genitourinary: Reports: No Symptoms Musculoskeletal: Reports: No Symptoms Skin: Reports: No Symptoms - Patient Data Vitals - Most Recent: Last Vital Signs Temp 36.1 C 03/18/21 06:00 Pulse 80 03/18/21 06:00 Resp 18 03/18/21 06:00 BP 183/104 H 03/18/21 07:50 Pulse Ox 100 03/18/21 06:00 Weight - Most Recent: 82.917 kg I&O - Last 24 hours: Intake & Output 03/17/21 03/18/21 03/18/21 22:59 06:59 14:59 Intake Total 759 2182 Balance 759 2182 Lab Results - Last 24 hrs: Laboratory Results - last 24 hr 03/17/21 03/17/21 03/17/21 Range/Units 09:42 09:42 09:42 WBC 8.7 (4.0-10.0) x10^3/uL RBC 4.96 (4.5-6.0) x10^6/uL Hgb 15.2 (14.0-18.0) g/dL Hct 44.2 (40.0-52.0) % MCV 89.1 (78.0-93.0) fL MCH 30.6 (26.0-32.0) pg MCHC 34.4 (32.0-36.0) g/dL RDW Coeff of Mimi 15.6 H (10.0-15.0) % Plt Count 167 (130-400) x10^3/uL Add Manual Diff Yes Neutrophils % (Manual) 60 (50-80) % Band Neutrophils % 3 (0-6) % Lymphocytes % (Manual) 23 L (25-50) % Monocytes % (Manual) 10 (2-11) % Eosinophils % (Manual) 2 (0-4) % Metamyelocytes % 2 H (0) % Platelet Estimate Adequate Anisocytosis 1+ slight H PT 10.7 (9.9-12.5) SEC INR 1.0 L (2.0-3.5) APTT (25.6-32.8) SEC Sodium 130 L (136-145) mmol/L Potassium 4.8 (3.5-5.1) mmol/L Chloride 94 L (98-107) mmol/L Carbon Dioxide 30 (21-32) mmol/L Anion Gap 10.8 (5-15) mmol/L BUN 23 H (7-18) mg/dL Creatinine 1.0 (0.70-1.30) mg/dL Est Cr Clr Drug Dosing TNP Estimated GFR (MDRD) > 60 Glucose 115 H (70-99) mg/dL POC Glucose (70-99) mg/dL Lactic Acid (0.4-2.0) mmol/L Calcium 9.1 (8.5-10.1) mg/dL Corrected Calcium 9.4 (8.5-10.1) mg/dL Phosphorus 3.5 (2.6-4.7) mg/dL Magnesium 1.4 L (1.8-2.4) mg/dL Total Bilirubin 0.4 (0.2-1.0) mg/dL AST 14 L (15-37) U/L ALT 10 L (16-63) U/L Alkaline Phosphatase 49 (46-116) U/L Creatine Kinase (39-308) U/L Troponin I High Sens 11 (<=76) ng/L C-Reactive Protein < 0.2 (<=0.9) mg/dL Total Protein 7.3 (6.4-8.2) g/dL Albumin 3.6 (3.4-5.0) g/dL Globulin 3.7 Albumin/Globulin Ratio 0.97 Procalcitonin (0.1-0.50) ng/mL TSH, Ultra Sensitive 4.360 H (0.358-3.74) uIU/mL Urine Color (YELLOW) Urine Appearance (CLEAR) Urine pH (5.0-8.0) Ur Specific [place] Urine Protein (NEGATIVE) mg/dL Urine Glucose (UA) (NEGATIVE) mg/dL Urine Ketones (NEGATIVE) mg/dL Urine Occult Blood (NEGATIVE) Urine Nitrite (NEGATIVE) Urine Bilirubin (NEGATIVE) Urine Urobilinogen (0.2) EU/dL Ur Leukocyte Esterase (NEGATIVE) Urine Opiates Screen (NEAGTIVE) Ur Buprenorphine Scrn (NEGATIVE) Ur Oxycodone Screen (NEGATIVE) Urine Methadone Screen (NEGATIVE) Ur Barbiturates Screen (NEGATIVE) Ur Phencyclidine Scrn (NEGATIVE) Ur Amphetamine Screen (NEGATIVE) U Methamphetamines Scrn (NEGATIVE) Urine MDMA Screen (NEGATIVE) U Benzodiazepines Scrn (NEGATIVE) U Cocaine Metab Screen (NEGATIVE) U Marijuana (THC) Screen (NEGATIVE) Ethyl Alcohol < 3 (0-3) mg/dL SARS CoV-2 RNA Rapid DIONTE (NEGATIVE) 03/17/21 03/17/21 03/17/21 Range/Units 09:42 09:42 09:42 WBC (4.0-10.0) x10^3/uL RBC (4.5-6.0) x10^6/uL Hgb (14.0-18.0) g/dL Hct (40.0-52.0) % MCV (78.0-93.0) fL MCH (26.0-32.0) pg MCHC (32.0-36.0) g/dL RDW Coeff of Mimi (10.0-15.0) % Plt Count (130-400) x10^3/uL Add Manual Diff Neutrophils % (Manual) (50-80) % Band Neutrophils % (0-6) % Lymphocytes % (Manual) (25-50) % Monocytes % (Manual) (2-11) % Eosinophils % (Manual) (0-4) % Metamyelocytes % (0) % Platelet Estimate Anisocytosis PT (9.9-12.5) SEC INR (2.0-3.5) APTT 26.0 (25.6-32.8) SEC Sodium (136-145) mmol/L Potassium (3.5-5.1) mmol/L Chloride (98-107) mmol/L Carbon Dioxide (21-32) mmol/L Anion Gap (5-15) mmol/L BUN (7-18) mg/dL Creatinine (0.70-1.30) mg/dL Est Cr Clr Drug Dosing Estimated GFR (MDRD) Glucose (70-99) mg/dL POC Glucose (70-99) mg/dL Lactic Acid 4.0 H* (0.4-2.0) mmol/L Calcium (8.5-10.1) mg/dL Corrected Calcium (8.5-10.1) mg/dL Phosphorus (2.6-4.7) mg/dL Magnesium (1.8-2.4) mg/dL Total Bilirubin (0.2-1.0) mg/dL AST (15-37) U/L ALT (16-63) U/L Alkaline Phosphatase (46-116) U/L Creatine Kinase 109 (39-308) U/L Troponin I High Sens (<=76) ng/L C-Reactive Protein (<=0.9) mg/dL Total Protein (6.4-8.2) g/dL Albumin (3.4-5.0) g/dL Globulin Albumin/Globulin Ratio Procalcitonin (0.1-0.50) ng/mL TSH, Ultra Sensitive (0.358-3.74) uIU/mL Urine Color (YELLOW) Urine Appearance (CLEAR) Urine pH (5.0-8.0) Ur Specific [place] Urine Protein (NEGATIVE) mg/dL Urine Glucose (UA) (NEGATIVE) mg/dL Urine Ketones (NEGATIVE) mg/dL Urine Occult Blood (NEGATIVE) Urine Nitrite (NEGATIVE) Urine Bilirubin (NEGATIVE) Urine Urobilinogen (0.2) EU/dL Ur Leukocyte Esterase (NEGATIVE) Urine Opiates Screen (NEAGTIVE) Ur Buprenorphine Scrn (NEGATIVE) Ur Oxycodone Screen (NEGATIVE) Urine Methadone Screen (NEGATIVE) Ur Barbiturates Screen (NEGATIVE) Ur Phencyclidine Scrn (NEGATIVE) Ur Amphetamine Screen (NEGATIVE) U Methamphetamines Scrn (NEGATIVE) Urine MDMA Screen (NEGATIVE) U Benzodiazepines Scrn (NEGATIVE) U Cocaine Metab Screen (NEGATIVE) U Marijuana (THC) Screen (NEGATIVE) Ethyl Alcohol (0-3) mg/dL SARS CoV-2 RNA Rapid DIONTE (NEGATIVE) 03/17/21 03/17/21 03/17/21 Range/Units 09:42 10:29 10:29 WBC (4.0-10.0) x10^3/uL RBC (4.5-6.0) x10^6/uL Hgb (14.0-18.0) g/dL Hct (40.0-52.0) % MCV (78.0-93.0) fL MCH (26.0-32.0) pg MCHC (32.0-36.0) g/dL RDW Coeff of Mimi (10.0-15.0) % Plt Count (130-400) x10^3/uL Add Manual Diff Neutrophils % (Manual) (50-80) % Band Neutrophils % (0-6) % Lymphocytes % (Manual) (25-50) % Monocytes % (Manual) (2-11) % Eosinophils % (Manual) (0-4) % Metamyelocytes % (0) % Platelet Estimate Anisocytosis PT (9.9-12.5) SEC INR (2.0-3.5) APTT (25.6-32.8) SEC Sodium (136-145) mmol/L Potassium (3.5-5.1) mmol/L Chloride (98-107) mmol/L Carbon Dioxide (21-32) mmol/L Anion Gap (5-15) mmol/L BUN (7-18) mg/dL Creatinine (0.70-1.30) mg/dL Est Cr Clr Drug Dosing Estimated GFR (MDRD) Glucose (70-99) mg/dL POC Glucose (70-99) mg/dL Lactic Acid (0.4-2.0) mmol/L Calcium (8.5-10.1) mg/dL Corrected Calcium (8.5-10.1) mg/dL Phosphorus (2.6-4.7) mg/dL Magnesium (1.8-2.4) mg/dL Total Bilirubin (0.2-1.0) mg/dL AST (15-37) U/L ALT (16-63) U/L Alkaline Phosphatase (46-116) U/L Creatine Kinase (39-308) U/L Troponin I High Sens (<=76) ng/L C-Reactive Protein (<=0.9) mg/dL Total Protein (6.4-8.2) g/dL Albumin (3.4-5.0) g/dL Globulin Albumin/Globulin Ratio Procalcitonin <0.05 L (0.1-0.50) ng/mL TSH, Ultra Sensitive (0.358-3.74) uIU/mL Urine Color Yellow (YELLOW) Urine Appearance Clear (CLEAR) Urine pH 8.0 (5.0-8.0) Ur Specific [place] 1.020 Urine Protein Negative (NEGATIVE) mg/dL Urine Glucose (UA) Negative (NEGATIVE) mg/dL Urine Ketones 15 H (NEGATIVE) mg/dL Urine Occult Blood Negative (NEGATIVE) Urine Nitrite Negative (NEGATIVE) Urine Bilirubin Negative (NEGATIVE) Urine Urobilinogen 1.0 (0.2) EU/dL Ur Leukocyte Esterase Negative (NEGATIVE) Urine Opiates Screen Negative (NEAGTIVE) Ur Buprenorphine Scrn Negative (NEGATIVE) Ur Oxycodone Screen Negative (NEGATIVE) Urine Methadone Screen Negative (NEGATIVE) Ur Barbiturates Screen Negative (NEGATIVE) Ur Phencyclidine Scrn Negative (NEGATIVE) Ur Amphetamine Screen Negative (NEGATIVE) U Methamphetamines Scrn Negative (NEGATIVE) Urine MDMA Screen Negative (NEGATIVE) U Benzodiazepines Scrn Negative (NEGATIVE) U Cocaine Metab Screen Negative (NEGATIVE) U Marijuana (THC) Screen Negative (NEGATIVE) Ethyl Alcohol (0-3) mg/dL SARS CoV-2 RNA Rapid DIONTE (NEGATIVE) 03/17/21 03/17/21 03/17/21 Range/Units 11:28 12:30 16:05 WBC (4.0-10.0) x10^3/uL RBC (4.5-6.0) x10^6/uL Hgb (14.0-18.0) g/dL Hct (40.0-52.0) % MCV (78.0-93.0) fL MCH (26.0-32.0) pg MCHC (32.0-36.0) g/dL RDW Coeff of Mimi (10.0-15.0) % Plt Count (130-400) x10^3/uL Add Manual Diff Neutrophils % (Manual) (50-80) % Band Neutrophils % (0-6) % Lymphocytes % (Manual) (25-50) % Monocytes % (Manual) (2-11) % Eosinophils % (Manual) (0-4) % Metamyelocytes % (0) % Platelet Estimate Anisocytosis PT (9.9-12.5) SEC INR (2.0-3.5) APTT (25.6-32.8) SEC Sodium (136-145) mmol/L Potassium (3.5-5.1) mmol/L Chloride (98-107) mmol/L Carbon Dioxide (21-32) mmol/L Anion Gap (5-15) mmol/L BUN (7-18) mg/dL Creatinine (0.70-1.30) mg/dL Est Cr Clr Drug Dosing Estimated GFR (MDRD) Glucose (70-99) mg/dL POC Glucose (70-99) mg/dL Lactic Acid 5.8 H* 5.2 H* (0.4-2.0) mmol/L Calcium (8.5-10.1) mg/dL Corrected Calcium (8.5-10.1) mg/dL Phosphorus (2.6-4.7) mg/dL Magnesium (1.8-2.4) mg/dL Total Bilirubin (0.2-1.0) mg/dL AST (15-37) U/L ALT (16-63) U/L Alkaline Phosphatase (46-116) U/L Creatine Kinase (39-308) U/L Troponin I High Sens (<=76) ng/L C-Reactive Protein (<=0.9) mg/dL Total Protein (6.4-8.2) g/dL Albumin (3.4-5.0) g/dL Globulin Albumin/Globulin Ratio Procalcitonin (0.1-0.50) ng/mL TSH, Ultra Sensitive (0.358-3.74) uIU/mL Urine Color (YELLOW) Urine Appearance (CLEAR) Urine pH (5.0-8.0) Ur Specific [place] Urine Protein (NEGATIVE) mg/dL Urine Glucose (UA) (NEGATIVE) mg/dL Urine Ketones (NEGATIVE) mg/dL Urine Occult Blood (NEGATIVE) Urine Nitrite (NEGATIVE) Urine Bilirubin (NEGATIVE) Urine Urobilinogen (0.2) EU/dL Ur Leukocyte Esterase (NEGATIVE) Urine Opiates Screen (NEAGTIVE) Ur Buprenorphine Scrn (NEGATIVE) Ur Oxycodone Screen (NEGATIVE) Urine Methadone Screen (NEGATIVE) Ur Barbiturates Screen (NEGATIVE) Ur Phencyclidine Scrn (NEGATIVE) Ur Amphetamine Screen (NEGATIVE) U Methamphetamines Scrn (NEGATIVE) Urine MDMA Screen (NEGATIVE) U Benzodiazepines Scrn (NEGATIVE) U Cocaine Metab Screen (NEGATIVE) U Marijuana (THC) Screen (NEGATIVE) Ethyl Alcohol (0-3) mg/dL SARS CoV-2 RNA Rapid DIONTE Negative (NEGATIVE) 03/17/21 03/18/21 03/18/21 Range/Units 16:52 06:48 06:48 WBC 9.4 (4.0-10.0) x10^3/uL RBC 4.46 L (4.5-6.0) x10^6/uL Hgb 13.9 L (14.0-18.0) g/dL Hct 39.7 L (40.0-52.0) % MCV 89.0 (78.0-93.0) fL MCH 31.2 (26.0-32.0) pg MCHC 35.0 (32.0-36.0) g/dL RDW Coeff of Mimi 15.4 H (10.0-15.0) % Plt Count 162 (130-400) x10^3/uL Add Manual Diff Yes Neutrophils % (Manual) 46 L (50-80) % Band Neutrophils % 5 (0-6) % Lymphocytes % (Manual) 31 (25-50) % Monocytes % (Manual) 14 H (2-11) % Eosinophils % (Manual) 2 (0-4) % Metamyelocytes % 2 H (0) % Platelet Estimate Adequate Anisocytosis PT (9.9-12.5) SEC INR (2.0-3.5) APTT (25.6-32.8) SEC Sodium 129 L* (136-145) mmol/L Potassium 4.4 (3.5-5.1) mmol/L Chloride 98 (98-107) mmol/L Carbon Dioxide 26 (21-32) mmol/L Anion Gap 9.4 (5-15) mmol/L BUN 21 H (7-18) mg/dL Creatinine 0.8 (0.70-1.30) mg/dL Est Cr Clr Drug Dosing 86.69 Estimated GFR (MDRD) > 60 Glucose 95 (70-99) mg/dL POC Glucose 177 H (70-99) mg/dL Lactic Acid (0.4-2.0) mmol/L Calcium 8.1 L (8.5-10.1) mg/dL Corrected Calcium (8.5-10.1) mg/dL Phosphorus (2.6-4.7) mg/dL Magnesium (1.8-2.4) mg/dL Total Bilirubin (0.2-1.0) mg/dL AST (15-37) U/L ALT (16-63) U/L Alkaline Phosphatase (46-116) U/L Creatine Kinase (39-308) U/L Troponin I High Sens (<=76) ng/L C-Reactive Protein < 0.2 (<=0.9) mg/dL Total Protein (6.4-8.2) g/dL Albumin (3.4-5.0) g/dL Globulin Albumin/Globulin Ratio Procalcitonin (0.1-0.50) ng/mL TSH, Ultra Sensitive (0.358-3.74) uIU/mL Urine Color (YELLOW) Urine Appearance (CLEAR) Urine pH (5.0-8.0) Ur Specific [place] Urine Protein (NEGATIVE) mg/dL Urine Glucose (UA) (NEGATIVE) mg/dL Urine Ketones (NEGATIVE) mg/dL Urine Occult Blood (NEGATIVE) Urine Nitrite (NEGATIVE) Urine Bilirubin (NEGATIVE) Urine Urobilinogen (0.2) EU/dL Ur Leukocyte Esterase (NEGATIVE) Urine Opiates Screen (NEAGTIVE) Ur Buprenorphine Scrn (NEGATIVE) Ur Oxycodone Screen (NEGATIVE) Urine Methadone Screen (NEGATIVE) Ur Barbiturates Screen (NEGATIVE) Ur Phencyclidine Scrn (NEGATIVE) Ur Amphetamine Screen (NEGATIVE) U Methamphetamines Scrn (NEGATIVE) Urine MDMA Screen (NEGATIVE) U Benzodiazepines Scrn (NEGATIVE) U Cocaine Metab Screen (NEGATIVE) U Marijuana (THC) Screen (NEGATIVE) Ethyl Alcohol (0-3) mg/dL SARS CoV-2 RNA Rapid DIONTE (NEGATIVE) 03/18/21 03/18/21 03/18/21 Range/Units 06:48 06:48 07:29 WBC (4.0-10.0) x10^3/uL RBC (4.5-6.0) x10^6/uL Hgb (14.0-18.0) g/dL Hct (40.0-52.0) % MCV (78.0-93.0) fL MCH (26.0-32.0) pg MCHC (32.0-36.0) g/dL RDW Coeff of Mimi (10.0-15.0) % Plt Count (130-400) x10^3/uL Add Manual Diff Neutrophils % (Manual) (50-80) % Band Neutrophils % (0-6) % Lymphocytes % (Manual) (25-50) % Monocytes % (Manual) (2-11) % Eosinophils % (Manual) (0-4) % Metamyelocytes % (0) % Platelet Estimate Anisocytosis PT (9.9-12.5) SEC INR (2.0-3.5) APTT (25.6-32.8) SEC Sodium (136-145) mmol/L Potassium (3.5-5.1) mmol/L Chloride (98-107) mmol/L Carbon Dioxide (21-32) mmol/L Anion Gap (5-15) mmol/L BUN (7-18) mg/dL Creatinine (0.70-1.30) mg/dL Est Cr Clr Drug Dosing Estimated GFR (MDRD) Glucose (70-99) mg/dL POC Glucose 99 (70-99) mg/dL Lactic Acid 1.7 (0.4-2.0) mmol/L Calcium (8.5-10.1) mg/dL Corrected Calcium (8.5-10.1) mg/dL Phosphorus (2.6-4.7) mg/dL Magnesium (1.8-2.4) mg/dL Total Bilirubin (0.2-1.0) mg/dL AST (15-37) U/L ALT (16-63) U/L Alkaline Phosphatase (46-116) U/L Creatine Kinase (39-308) U/L Troponin I High Sens (<=76) ng/L C-Reactive Protein (<=0.9) mg/dL Total Protein (6.4-8.2) g/dL Albumin (3.4-5.0) g/dL Globulin Albumin/Globulin Ratio Procalcitonin <0.05 L (0.1-0.50) ng/mL TSH, Ultra Sensitive (0.358-3.74) uIU/mL Urine Color (YELLOW) Urine Appearance (CLEAR) Urine pH (5.0-8.0) Ur Specific [place] Urine Protein (NEGATIVE) mg/dL Urine Glucose (UA) (NEGATIVE) mg/dL Urine Ketones (NEGATIVE) mg/dL Urine Occult Blood (NEGATIVE) Urine Nitrite (NEGATIVE) Urine Bilirubin (NEGATIVE) Urine Urobilinogen (0.2) EU/dL Ur Leukocyte Esterase (NEGATIVE) Urine Opiates Screen (NEAGTIVE) Ur Buprenorphine Scrn (NEGATIVE) Ur Oxycodone Screen (NEGATIVE) Urine Methadone Screen (NEGATIVE) Ur Barbiturates Screen (NEGATIVE) Ur Phencyclidine Scrn (NEGATIVE) Ur Amphetamine Screen (NEGATIVE) U Methamphetamines Scrn (NEGATIVE) Urine MDMA Screen (NEGATIVE) U Benzodiazepines Scrn (NEGATIVE) U Cocaine Metab Screen (NEGATIVE) U Marijuana (THC) Screen (NEGATIVE) Ethyl Alcohol (0-3) mg/dL SARS CoV-2 RNA Rapid DIONTE (NEGATIVE) Med Orders - Current: Current Medications Aspirin (Aspirin 81 Mg Tab.Ec) 81 mg PO BEDTIME [facility] Last Admin: 03/17/21 20:17 Dose: 81 mg Documented by: Carbamazepine (Carbamazepine 200 Mg Tab) 200 mg PO BID@07,16 [facility] Last Admin: 03/18/21 07:50 Dose: 200 mg Documented by: Carbamazepine (Carbamazepine 200 Mg Tab) 400 mg PO BEDTIME [facility] Last Admin: 03/17/21 20:17 Dose: 400 mg Documented by: Ceftriaxone Sodium (Ceftriaxone 1 Gm Vial) 1 gm IVPUSH DAILY [facility] Last Admin: 03/18/21 07:51 Dose: 1 gm Documented by: Divalproex Sodium (Divalproex Sodium 500 Mg Tab.Er) 1,000 mg PO TID@0700,1600,2100 [facility] Last Admin: 03/18/21 07:50 Dose: 1,000 mg Documented by: Docusate Sodium (Docusate Sodium 100 Mg Cap) 200 mg PO DAILY@18 [facility] Last Admin: 03/17/21 17:24 Dose: 200 mg Documented by: Doxycycline Hyclate (Doxycycline 100 Mg Cap) 100 mg PO BID [facility] Last Admin: 03/18/21 07:50 Dose: 100 mg Documented by: Hydrochlorothiazide (Hydrochlorothiazide 25 Mg Tab) 25 mg PO DAILY [facility] Last Admin: 03/18/21 07:50 Dose: 25 mg Documented by: Sodium Chloride (Normal Saline) 1,000 mls @ 150 mls/hr IV ASDIRECTED [facility] Last Admin: 03/18/21 02:50 Dose: 150 mls/hr Documented by: Lisinopril (Lisinopril 20 Mg Tab) 20 mg PO BID [facility] Last Admin: 03/18/21 07:50 Dose: 20 mg Documented by: Multivitamins/Minerals (Multivitamins With Iron/Calcium/Folic Acid/Minerals Tab) 1 tab PO DAILY [facility] Last Admin: 03/18/21 07:50 Dose: 1 tab Documented by: Simvastatin (Simvastatin 40 Mg Tab) 40 mg PO BEDTIME [facility] Last Admin: 03/17/21 20:17 Dose: 40 mg Documented by: Sodium Chloride (Sodium Chloride 0.9% 10 Ml Syringe) 10 ml FLUSH ASDIRECTED PRN PRN Reason: Keep Vein Open Discontinued Medications Ceftriaxone Sodium (Ceftriaxone 1 Gm Vial) 1 gm IVPUSH STAT ONE Stop: 03/17/21 11:17 Last Admin: 03/17/21 11:35 Dose: 1 gm Documented by: Metformin HCl (Metformin 500 Mg Tab) 1,000 mg PO BIDMEALS [facility] - Exam General: Reports: Alert, Cooperative, No Acute Distress HEENT: Reports: Pupils Equal, Pupils Reactive, Mucous Membr. Moist/[place] Neck: Reports: Supple, Trachea Midline, No Thyromegaly. Denies: Lymphadenopathy Lungs: Reports: Clear to Auscultation, Normal Respiratory Effort Cardiovascular: Reports: Regular Rate, Regular Rhythm, No Murmurs GI/Abdominal Exam: Normal Bowel Sounds, Soft, Non-Tender, No Organomegaly, No Distention, No Mass Extremities: Normal Inspection, Normal Range of Motion, Non-Tender, No Pedal Edema Skin: Reports: Warm, Dry, Intact Neurological: Reports: No New Focal Deficit
[2021-03-18 10:50] VITALS: BP 164/73; PULSE 73
== END 2021-03-18 10:45 ==
LOC: VM.ED 09:13 → VM.MS 11:23
PROVIDERS: ADMIT Physician Assistant; ATTEND Family Medicine
DX: E87.2 Acidosis (principal); E87.1 Hypo-osmolality and hyponatremia; D64.9 Anemia, unspecified; I10 Essential (primary) hypertension; E78.5 Hyperlipidemia, unspecified; E11.9 Type 2 diabetes mellitus without complications; F71 Moderate intellectual disabilities; G40.909 Epilepsy, unspecified, not intractable, without status epilepticus; Z79.82 Long term (current) use of aspirin; Z79.899 Other long term (current) drug therapy; Z20.822 Contact with and (suspected) exposure to COVID-19
CPT/HCPCS: 36000; 36415; 70450; 71045; 80048; 80053; 80305-QW; 80307; 81003; 82550; 82947; 83605; 83735; 84100; 84145; 84443; 84484; 85025; 85610; 85730; 86140; 87040; 93005; 96374; 96376; 99220; 99285-25; A9270-GY; G0378; J0696; J7030; U0002

== ENCOUNTER 2022-01-06 15:28 | Emergency (ER) | payer OTHER, MEDICARE, MEDICAID | END 2022-01-06 15:55 | disposition home or self-care (01) | LOC: VM.ED 15:28 → MERGE 15:28 → VM.ED 15:55 | DX: S42.495A Other nondisplaced fracture of lower end of left humerus, initial encounter for closed fracture (principal); E78.00 Pure hypercholesterolemia, unspecified; I10 Essential (primary) hypertension; E11.9 Type 2 diabetes mellitus without complications; Z86.73 Personal history of transient ischemic attack (TIA), and cerebral infarction without residual deficits; Z90.49 Acquired absence of other specified parts of digestive tract; Z79.899 Other long term (current) drug therapy; Z79.82 Long term (current) use of aspirin; Z88.8 Allergy status to other drugs, medicaments and biological substances; Y04.0XXA Assault by unarmed brawl or fight, initial encounter | CPT/HCPCS: 73080-LT; 99283-25; 99284 ==